=== PATIENT | male | born 1955 | race Two or more races ===

== ENCOUNTER → 2017-12-08 | Outpatient (CLI) | payer OTHER | END | disposition home or self-care (01) | LOC: RADUSWWP 14:25 | PROVIDERS: ATTEND Family Medicine | DX: I73.00 Raynaud's syndrome without gangrene (principal) | CPT/HCPCS: 93923 ==

== ENCOUNTER → 2022-08-19 | Outpatient (CLI) | payer MEDICARE ==
[2022-08-19 15:55] LABS: African American GFR (CKD) >90 (>60 ml/min/1.73 sqM); Blood Urea Nitrogen 19 mg/dL (9-20); Non-African American GFR(CKD) 80 (>60 ml/min/1.73 sqM)
--- NOTE | 2022-08-19 18:17 | CT ---
EXAMINATION TYPE: CT abdomen pelvis w con CT DLP: 738.3 mGycm, Automated exposure control for dose reduction was used. DATE OF EXAM: 08/19/2022 5:17 PM COMPARISON: None. CLINICAL INDICATION:Male, 66 years old with history of K43.2 incisional hernia w/o obstruction/gangr jyoti; Incisional hernia without obstruction or gangrene. TECHNIQUE: Axial CT of the abdomen and pelvis. Sagittal and coronal reformats were created on a [employer] workstation. Contrast used:100cc mL of Isovue 300 with IV Contrast, Oral contrast used: with Oral Contrast FINDINGS: LOWER CHEST: Moderate to severe emphysema changes most pronounced in the right lung base with large b marco. ABDOMEN LIVER: Right hepatic lobe silhouette subcapsular cyst measuring up to 3.7 cm. GALLBLADDER AND BILE DUCTS: Unremarkable. PANCREAS: Unremarkable. SPLEEN: Unremarkable. ADRENAL GLANDS: Unremarkable. KIDNEYS AND URETERS: No evidence of hydronephrosis or renal calculus. The ureters are unremarkable. PELVIS BLADDER: Unremarkable REPRODUCTIVE: The prostate gland is enlarged measuring up to 5.2 cm. ABDOMEN & PELVIS STOMACH AND BOWEL: No evidence of bowel obstruction. PERITONEUM: No evidence of pneumoperitoneum or free fluid. VASCULATURE: No evidence of aortic aneurysm. Atherosclerosis of the arterial vasculature. MUSCULOSKELETAL: No acute osseous abnormalities, multilevel disc degeneration changes are present thr oughout the spine. LYMPH NODES: No gross evidence for lymphadenopathy. SOFT TISSUE/ABDOMINAL WALL: Diastases of the rectus abdominis muscles versus postsurgical ventral wal l hernia containing loops of small and large bowel. The area extends approximately 13 x 7.4 cm. No ev idence of bowel obstruction or bowel wall thickening. There is no focal neck of this herniation. IMPRESSION: 1. Diastases of the anterior abdominal wall which may represent postsurgical ventral wall hernia giv en provided history. No evidence of bowel obstruction. No focal neck of the anterior abdominal wall h erniation. 2. Prostatomegaly correlate serum PSA. 3. Moderate to severe emphysema changes with bullae. Low-dose CT lung cancer screening is recommende d for patients with risk factors.
== END | disposition home or self-care (01) ==
LOC: RADCTMAIN 15:17
PROVIDERS: ATTEND Surgery Plastic and Reconstructive Surgery
DX: N40.0 Benign prostatic hyperplasia without lower urinary tract symptoms (principal); J43.9 Emphysema, unspecified; K43.2 Incisional hernia without obstruction or gangrene
CPT/HCPCS: 82565; 84520; 74177; 36415; Q9967

== ENCOUNTER → 2023-10-10 | Outpatient (CLI) | payer MEDICARE ==
--- NOTE | 2023-10-10 14:07 | CTL ---
EXAMINATION TYPE: CT Low Dose Lung DATE OF EXAM ORDERED: 10/10/2023 HISTORY: Lung cancer screening CT DLP: [address] CTDI: 1.95 mGy Automated exposure control for dose reduction was used. SCREENING VISIT: First COMPARISON: None TECHNIQUE: Low dose computed tomography scan was performed through the chest at 1 mm thick sections a nd reconstructed images in multiple planes at 1 mm and [address] DIAGNOSTIC QUALITY: Satisfactory FINDINGS: There is a 5.5 mm nodule in the right upper lobe with mild adjacent pleural parenchymal scarring. There is a 6.5 mm fissural nodule of the right minor fissure. There are marked emphysematous changes. There is no abnormal airspace/consolidative density. There is no pleural effusion, pleural thickening or pneumothorax. The great vessels chest are normal is no mediastinal, hilar or axillary adenopathy. No focal osseous lesions are seen. IMPRESSION: 1. Lung RADS category 3 likely benign finding. 6 month follow-up CT for the right fissural nodule is recommended to confirm stability. 2. Marked emphysematous changes. 3. No acute cardiopulmonary disease.
== END | disposition home or self-care (01) ==
LOC: RADCTMAIN 09:06
PROVIDERS: ATTEND Family Medicine
DX: Z12.2 Encounter for screening for malignant neoplasm of respiratory organs (principal); J43.9 Emphysema, unspecified; R91.1 Solitary pulmonary nodule; F17.210 Nicotine dependence, cigarettes, uncomplicated
CPT/HCPCS: 71271